=== PATIENT | male | born 1995 | race Caucasian/White ===

== ENCOUNTER 2018-11-13 14:54 | Emergency (ER) | payer OTHER ==
[2018-11-13 15:54] VITALS: BP 133/66
--- NOTE | 2018-11-13 17:37 | UC ---
Throat Pain/Nasal Sohan HPI - HPI Summary HPI Summary: 23 yo male has been ill for about 10 days nasal congestion pal fatigue mild sore throat swollen glands took z-osmany and not better - History of Current Complaint Chief Complaint: UCRespiratory Stated Complaint: SORE THROAT RIGHT NECK TIGHTNESS FATIGUE HEADACHE Time Seen by Provider: 11/13/18 16:38 Hx Obtained From: Patient Onset/Duration: Gradual Onset, Lasting Days - 10 or more Severity: Moderate Pain Intensity: 0 Pain Scale Used: 0-10 Numeric Associated Signs & Symptoms: Positive: Sinus Discomfort - Allergies/Home Medications Allergies/Adverse Reactions: Allergies Allergy/AdvReac Type Severity Reaction Status Date / Time No Known Allergies Allergy Verified 11/13/18 15:45 Home Medications: Home Medications Azithromycin TAB* [Zithromax TAB (Z-OSMANY) 250 mg #6 tabs] 250 mg PO DAILY [History Confirmed 11/13/18] PMH/Surg Hx/FS Hx/Imm Hx Previously Healthy: Yes - Surgical History Surgical History: None - Family History Known Family History: Positive: Hypertension, Non-Contributory - Social History Alcohol Use: None Substance Use Type: Marijuana Substance Use Comment - Amount & Last Used: occasional use Smoking Status (MU): Never Smoked Tobacco Review of Systems All Other Systems Reviewed And Are Negative: Yes Constitutional: Positive: Fatigue Skin: Positive: Negative Eyes: Positive: Negative ENT: Positive: Sore Throat, Sinus Congestion Respiratory: Positive: Negative Cardiovascular: Positive: Negative Gastrointestinal: Positive: Negative Genitourinary: Positive: Negative Motor: Positive: Negative Neurovascular: Positive: Negative Musculoskeletal: Positive: Negative Neurological: Positive: Negative Psychological: Positive: Negative Physical Exam Triage Information Reviewed: Yes Appearance: Well-Appearing, No Pain Distress, Well-Nourished Vital Signs: Initial Vital Signs Temp 98.9 F 11/13/18 15:47 Pulse 98 11/13/18 15:47 Resp 16 11/13/18 15:47 BP 133/66 11/13/18 15:47 Pulse Ox 100 11/13/18 15:47 Vital Signs Reviewed: Yes Eyes: Positive: Conjunctiva Clear ENT: Positive: Hearing grossly normal, Pharyngeal erythema, Nasal congestion, Uvula midline. Negative: Nasal drainage, Tonsillar swelling, Tonsillar exudate , Trismus, Muffled voice, Dental tenderness, Sinus tenderness Neck: Positive: Supple, Enlarged Nodes @ - ANT CERV NODES, tender R>L Respiratory: Positive: Lungs clear, Normal breath sounds, No respiratory distress, No accessory muscle use Cardiovascular: Positive: RRR, No Murmur Abdomen Description: Positive: Nontender, No Organomegaly. Negative: CVA Tenderness (R), CVA Tenderness (L) Bowel Sounds: Positive: Present Musculoskeletal: Positive: ROM Intact, No Edema Neurological: Positive: Alert Psychological Exam: Normal Skin Exam: Normal Throat Pain/Nasal Course/Dx - Course Course Of Treatment: strep (-) - Differential Dx/Diagnosis Provider Diagnosis: Viral syndrome, Cervical adenopathy Discharge - Sign-Out/Discharge Documenting (check all that apply): Patient Departure All imaging exams completed and their final reports reviewed: No Studies - Discharge Plan Condition: Stable Disposition: HOME Patient Education Materials: Lymphadenopathy (ED), Fatigue (ED) Referrals: No Primary Care Phys,NOPCP [Primary Care Provider] - Additional Instructions: blood work is pending blood count and mono recheck if glands not gone in 2 weeks recheck for new or worsening symptoms - Billing Disposition and Condition Condition: STABLE Disposition: Home
[2018-11-14 11:36] LABS: Hematocrit 37 % (36-46); Hemoglobin 12.8 g/dL (14.0-18.0); Mean Corpuscular HGB Conc 34 g/dL (31-36); Mean Corpuscular Hemoglobin 29 pg (27-31); Mean Corpuscular Volume 84 fL (80-94); Mean Platelet Volume 9.6 fL (7.4-10.4); Platelet Count 223 10^3/uL (150-450); Red Blood Count 4.45 10^6 /uL (4.18-5.48); Red Cell Distribution Width 13 % (10.5-15); White Blood Count 8.9 10^3/uL (3.5-10.8)
== END 2018-11-13 17:49 | disposition home or self-care (01) ==
LOC: UCCORT 14:54
DX: B34.9 Viral infection, unspecified (principal); R59.0 Localized enlarged lymph nodes; R09.81 Nasal congestion; R51 Headache; R53.83 Other fatigue
CPT/HCPCS: 36415; 85027; 86308; 87651; 99201; G0463

== ENCOUNTER 2018-11-20 09:08 | Emergency (ER) | payer OTHER ==
[2018-11-20 09:50] VITALS: BP 113/90
--- NOTE | 2018-11-20 10:51 | UC ---
Throat Pain/Nasal Sohan HPI - HPI Summary HPI Summary: sever sore throat x 1 week was seen at the urgent care last week + mono , feels very fatigue , swollen neck glands no fever, no cough - History of Current Complaint Chief Complaint: UCRespiratory Stated Complaint: RECHECK-NASAL CONGESTION,ST,BILATERAL EARACHE Time Seen by Provider: 11/20/18 10:31 Hx Obtained From: Patient Onset/Duration: Gradual Onset, Lasting Days - 7, Still Present Severity: Severe Pain Intensity: 8 Cough: None Associated Signs & Symptoms: Negative: Dysphagia, FB Sensation, Drooling, Wheezing, Hoarseness, Sinus Discomfort, Nasal Discharge, Fever, Vomiting, Rash - Allergies/Home Medications Allergies/Adverse Reactions: Allergies Allergy/AdvReac Type Severity Reaction Status Date / Time No Known Allergies Allergy Verified 11/20/18 09:50 Home Medications: Home Medications Acetaminophen [Tylenol Extra Strength] 1 tab PO DAILY 11/20/18 [History Confirmed 11/20/18] Dm/PE/Acetaminophen/Doxylamine [Vicks Dayquil-Nyquil Cold-Flu] 1 each PO ONCE PRN 11/20/18 [History Confirmed 11/20/18] PMH/Surg Hx/FS Hx/Imm Hx Previously Healthy: Yes - Surgical History Surgical History: None - Family History Known Family History: Positive: Hypertension, Non-Contributory - Social History Alcohol Use: Weekly Substance Use Type: None Substance Use Comment - Amount & Last Used: hx marijuana Smoking Status (MU): Never Smoked Tobacco Review of Systems All Other Systems Reviewed And Are Negative: Yes Constitutional: Positive: Chills, Fatigue Skin: Positive: Negative Eyes: Positive: Negative ENT: Positive: Sore Throat Respiratory: Positive: Negative Musculoskeletal: Positive: Arthralgia, Myalgia Is Patient Immunocompromised?: No Physical Exam Triage Information Reviewed: Yes Appearance: Well-Nourished, Pain Distress Vital Signs: Initial Vital Signs Temp 98.1 F 11/20/18 09:46 Pulse 95 11/20/18 09:46 Resp 18 11/20/18 09:46 BP 113/90 11/20/18 09:46 Pulse Ox 98 11/20/18 09:46 Vital Signs Reviewed: Yes Eye Exam: Normal Eyes: Positive: Conjunctiva Clear ENT: Positive: Normal ENT inspection, Hearing grossly normal, Pharyngeal erythema, TMs normal, Tonsillar swelling, Tonsillar exudate. Negative: Nasal congestion, Nasal drainage Neck: Positive: Tenderness @, Enlarged Nodes @ Respiratory: Positive: Chest non-tender, Lungs clear, Normal breath sounds Cardiovascular: Positive: RRR, No Murmur, Pulses Normal Skin Exam: Normal Throat Pain/Nasal Course/Dx - Differential Dx/Diagnosis Provider Diagnosis: Mononucleosis Discharge - Sign-Out/Discharge Documenting (check all that apply): Patient Departure All imaging exams completed and their final reports reviewed: No Studies - Discharge Plan Condition: Stable Disposition: HOME Prescriptions: predniSONE [Prednisone 20 MG TAB] 20 mg PO BID #10 tablet Patient Education Materials: Mononucleosis (ED) Forms: *School Release Referrals: No Primary Care Phys,NOPCP [Primary Care Provider] - If Needed - Billing Disposition and Condition Condition: STABLE Disposition: Home
== END 2018-11-20 10:52 | disposition home or self-care (01) ==
LOC: UCCORT 09:08
DX: B27.90 Infectious mononucleosis, unspecified without complication (principal)
CPT/HCPCS: 99212; G0463